=== PATIENT | male | born 1940 | race Caucasian/White ===

== ENCOUNTER → 2024-01-17 09:56 | Outpatient (REF) | payer MEDICARE, OTHER, SELFPAY | LOC: RAD 09:56 | PROVIDERS: ATTENDING PHYSICIAN Internal Medicine | DX: R79.89 Other specified abnormal findings of blood chemistry (principal) | CPT/HCPCS: 76770 ==

== ENCOUNTER 2024-10-11 08:15 | Emergency (ER) | payer MEDICARE, OTHER, SELFPAY ==
[2024-10-11] VITALS (8 sets, daily range): BP systolic 185–200; BP diastolic 71–94
--- NOTE | 2024-10-11 08:49 | ED.GENMED ---
History of Present Illness
General
Chief Complaint: Musculo-Skeletal Complaint
Source: patient and spouse
Time Seen by Provider: 10/11/24 08:33
History of Present Illness
History of Present Illness:
84-year-old male with past medical history of hypertension and hyperlipidemia presenting to the emergency department for evaluation of right-sided hip/lower back pain that has been ongoing for about 2 weeks, worse over the last 3 to 4 days noting
that the pain is worse when laying flat or standing up, somewhat relieved when sitting, unrelieved with taking Celebrex for the last 2 weeks. Patient notes that couple of days ago he felt as if he were perspiring and checked his blood pressure
noting that it was elevated with his systolic being as high as 200, diastolic never greater than 90. Patient states that for the last few days his blood pressure has been fluctuating and his was concerned so advised him to come to the ER for
further evaluation. At present time patient reports he is asymptomatic although still does note the mild right-sided lower back/hip pain. Patient thought that maybe the blood pressure was elevated due to taking his Celebrex. Saw his primary care
provider 1 to 2 months ago for routine checkup and notes his blood pressure was within normal limits at that time. Patient is otherwise denying any chest pain, shortness of breath, headaches, visual changes, focal weakness or numbness or any other
concerns.
Past History
Past History
ED Past Medical History: HTN and Hypercholesterolemia
ED Past Surgical History: Appendectomy and Other
Social History
Tobacco: Non-smoker
Alcohol: None
Drug: None
Personal:
Living: with family
Review of Systems
Review of Systems
All Other Systems: ROS reviewed and negative except as documented in HPI and ROS
Phy Exam
Physical Exam
Physical Exam:
GENERAL: Alert , in no apparent distress
HEAD: NCAT
EYE: clear conjunctiva
NECK: Supple
ENT: o/p clr, mmm.
CARDIAC: Regular rate and rhythm .
LUNGS: Clear breath sounds bilaterally, no acute respiratory distress, no wheezes/rales/rhonchi
ABDOMEN: Soft, without focal tenderness, no r/g, no cvat
BACK: no rashes, no focal ttp, allows for FROM, ambulatory with steady gait
NEUROLOGICAL: Alert and oriented, intact and equal sensation b/l LE. KIM x 4.
SKIN: Warm and dry, skin intact.
MUSCULOSKELETAL: No edema, well perfused.
PSYCH: Normal and appropriate interaction.
Scores
Heart Failure Risk
Heart Failure Risk Score: Not Applicable
Heart Score for Chest Pain Patients
STEMI patient?: Not applicable
Withdrawal Assessment of Alcohol
Withdrawal Assessment Completed?: Not applicable
Course
Orders/Labs/Results
Orders:
Orders
10/11/24 08:46
CR Hip - RT w/wo Pel 2-3 Vw* Urgent
Comment:
Reason For Exam: pain
Include a pelvis x-ray?: Yes
CR Lumbar Spine Comp Min 4 Vw* Urgent
Comment:
Reason For Exam: right pelvic/lower back pain
10/11/24 08:47
Electrocardiogram (*1) Urgent
Reason for Study: Hypertension, Benign
EKG- Treatment ONCE
10/11/24 08:56
Complete Blood Count/With Diff Urgent
Comprehensive Metabolic Panel Urgent
Troponin I Urgent
Abnormal Lab Results
10/11/24
08:56
RBC 4.10 L 10^6/uL
(4.70-6.10)
Hgb 12.8 L g/dL
(13.0-18.0)
Hct 37.3 L %
(39.0-52.0)
MCH 31.2 H pg
(27.0-31.0)
MPV 10.7 H fL
(7.4-10.4)
Neutrophils % 77.4 H %
(42.2-75.2)
Lymphocytes % 17.4 L %
(20.5-51.1)
10/11/24 08:56
10/11/24 08:56
Vital Signs
Initial and Last Documented VS:
Initial Vital Signs
Temp Pulse Resp BP Pulse Ox
98.4 F 71 18 189/84 100
10/11/24 08:21 10/11/24 08:21 10/11/24 08:21 10/11/24 08:21 10/11/24 08:21
Last Documented Vital Signs
Temp Pulse Resp BP Pulse Ox
98.4 F 69 12 186/90 98
10/11/24 08:21 10/11/24 10:45 10/11/24 10:45 10/11/24 10:00 10/11/24 10:45
MDM/Problems Addressed
Differential Diagnosis Includes:
Degenerative disc disease, spinal stenosis, hip bursitis, I do not have concern for fracture given patient is still ambulating as well as had no trauma. Hypertensive urgency/emergency, benign hypertension, atypical ACS presentation
MDM/Problems Addressed:
84-year-old male presenting to the ER for evaluation of right-sided hip/lower back pain that has been ongoing for the last 2 weeks, patient noticed blood pressure was elevated over the last 3 to 4 days. Patient states that he normally does not
check his blood pressure routinely but had an episode where he felt he was perspiring so decided to check his blood pressure which is when he noticed it was elevated on arrival here patient's triage blood pressure is elevated at 189/84 however he is
asymptomatic. Given his age will check labs including troponin and EKG. X-ray of the right hip and lumbosacral spine ordered.
Chronic conditions affecting care: HTN
*Radiology
Radiology exam reviewed: preliminary read by ED provider (No acute fractures. Degenerative changes noted)
*Pulse Oximetry
Patient hypoxic: no
*Critical Care Note
Total Time (30-74mins, 75-104mins- exclusive of procedures): Not Applicable
Patient Management
Escalation/DeEscalation of care consider admission/obs:
Patient's blood pressure remains elevated but stable. He remains asymptomatic as well. Patient is on 2-1/2 mg of amlodipine daily which seems to be a low dosage. Will increase this to 5 mg p.o. daily. Advised patient follow-up with primary care
provider to have his blood pressure closely monitored. Patient expressed understanding. Aware of return precautions to the ER but at this time otherwise stable for discharge home.
ED Attending Note
-
Portions of this chart may have been created with voice recognition software.� Occasional wrong word or��sound alike� substitutions may have occurred due to the inherent limitations of voice recognition software.
Discharge Plan
Departure
Patient Disposition: Home (Routine Discharge)
Date of Disposition: 10/11/24
Time of Disposition: 10:43
Patient with high blood pressure during this ER visit?: Yes
Discharge Problem:
Hypertension, Dorsalgia
Instructions: High blood pressure - ED discharge instructions
Prescriptions:
New
amlodipine 2.5 mg tablet
2.5 mg PO BID Qty: 60 0RF
No Action
multivitamin Tablet
1 tab PO DAILY
celecoxib 200 mg Capsule
200 mg PO . DIRECTED
allopurinol 100 mg Tablet
100 mg PO . DIRECTED
rosuvastatin 5 mg Tablet
5 mg PO DAILY
Bp Med
1 tab PO DAILY
Rx Instructions:
doesn't know name
Fiber Well Gummies
1 tab PO . DIRECTED
Referrals:
Xavier Guardado DO [Family Provider] -
Phi Fabian MD [Active] - (Ortho - Please call for appointment)
Activity Restrictions/Additional Instructions:
Please increase your amlodipine to 2.5 milligrams twice daily and contact your primary care provider for close follow-up and blood pressure management.
Interventions
Interventions:
*Risk Screen - Suicide Last Done: 10/11/24 08:21
*General Assessment Last Done: 10/11/24 08:21
*Neglect/Abuse Screening Last Done: 10/11/24 08:21
ED- Fall Risk Assessment Last Done: 10/11/24 08:35
*ED COVID-19 Vaccine History Last Done: 10/11/24 08:35
*Nursing Disposition Last Done: 10/11/24 10:40
ED-Musculoskeletal Assessment Last Done: 10/11/24 08:35
Discharge Date and Time
Discharge Date/Time: 10/11/24 10:40
Print Language: MALAYSIAN
[2024-10-11 09:03] LABS: % Basophils 0.3 % (0-2); % Eosinophils 0.7 % (0-6); % Immature Granulocytes 0.4 % (0-0.5); % Lymphocytes 17.4 % (20.5-51.1); % Monocytes 3.8 % (1.7-9.3); % Neutrophils 77.4 % (42.2-75.2); Absolute Eosinophils 0.1 10^3/uL (0-0.7); Absolute Lymphocytes 1.3 10^3/uL (1.2-3.4); Absolute Monocytes 0.3 10^3/uL (0.1-0.6); Absolute Neutrophils 5.7 10^3/uL (1.4-6.5); Hematocrit 37.3 % (39.0-52.0); Hemoglobin 12.8 g/dL (13.0-18.0); Mean Corp Hgb Conc. 34.3 g/dL (33.0-37.0); Mean Corpuscular Hgb 31.2 pg (27.0-31.0); Mean Platelet Volume 10.7 fL (7.4-10.4); Nucleated Red Blood Cells % 0 % (-); Platelet Count 188 10^3/uL (130-400); Red Cell Dist. Width 13.3 % (11.5-14.5); White Blood Cell Count 7.4 10^3/uL (4.8-10.8)
[2024-10-11 09:16] LABS: ALT (SGPT) 16 U/L (0-50); AST (SGOT) 20 U/L (17-59); Albumin 3.9 g/dl (3.5-5.0); Alkaline Phosphatase 100 U/L (38-126); Blood Urea Nitrogen 19 mg/dl (9-20); Carbon Dioxide 27 mmol/L (22-30); Chloride 106 mmol/L (98-107); Estimated Creatinine Clearance 49 ml/min; Glucose 88 mg/dl (70-99); Potassium 4.5 mmol/L (3.5-5.1); Sodium 138 mmol/L (135-145); Total Bilirubin 0.6 mg/dl (0.2-1.3); Total Protein 6.4 g/dl (6.3-8.2); eGFR 59.63
[2024-10-11 09:27] LABS: Troponin I < 0.012 ng/ml
== END 2024-10-11 10:40 | disposition home or self-care (01) ==
LOC: EMR 08:15
PROVIDERS: Physician Assistant Medical; EMERGENCY PHYSICIAN Emergency Medicine; FAMILY PHYSICIAN Internal Medicine
DX: M54.50 Low back pain, unspecified (principal); I10 Essential (primary) hypertension; E78.00 Pure hypercholesterolemia, unspecified; Z90.49 Acquired absence of other specified parts of digestive tract
CPT/HCPCS: 99285; 72110; 73502; 80053; 84484; 85025; 93005

== ENCOUNTER → 2024-11-30 08:08 | Outpatient (REF) | payer MEDICARE, OTHER, SELFPAY | LOC: MRI 3T 08:08 | PROVIDERS: ATTENDING PHYSICIAN Internal Medicine | DX: G57.01 Lesion of sciatic nerve, right lower limb (principal) | CPT/HCPCS: 72148 ==